=== PATIENT | female | born 1950 | race Caucasian/White ===

== ENCOUNTER 2020-04-15 01:20 | Observation (INO) ==
[2020-04-15] MEDS ORDERED: LORazepam 2 MG/1 ML VIAL ONE (01:42)
[2020-04-15] MEDS ORDERED: levETIRAcetam 500 MG/5 ML VIAL IV ONE (01:43)
[2020-04-15] MEDS ORDERED: SODIUM CHLORIDE 0.9% 1,000 ML IV STA ×2 (01:46→03:17)
[2020-04-15] MEDS ORDERED: LORazepam 2 MG/1 ML VIAL IV STA (01:56)
[2020-04-15 02:26] LABS: Basophils # 0.1 10*3/uL (0.0-0.2); Basophils % 0.7 % (0.0-0.8); Eosinophils # 0.2 10*3/uL (0.0-0.87); Eosinophils % 1.6 % (0.00-10.9); Hematocrit 41.1 VOL% (35.7-47.0); Hemoglobin 13.7 GM/DL (12.0-16.0); Immature Granulocytes % 0.4 %; Immature Granulocytes Absolute 0.04 #; Lymphocytes # 2.9 10*3/uL (1.4-4.0); Lymphocytes % 29.4 % (21.3-54.2); Mean Corpuscular HGB Conc 33.3 GM/DL (32-36); Mean Corpuscular Volume 89.5 FL (87-102); Monocytes % 10.2 % (1.7-12.7); Neutrophils % 57.7 % (38.7-73.9); Platelet Count 294 T/CUMM (130-400); Red Blood Count 4.59 MC/CUMM (3.8-5.5); Red Cell Distribution Width 12.7 % (9.3-17.3); White Blood Count 9.9 T/CUMM (4-12)
[2020-04-15 02:46] LABS: INR 0.9; PT Patient Result 9.9 SECS (9.8-11.9)
[2020-04-15 02:47] LABS: Alanine Aminotransferase 14 U/L (13-56); Albumin 3.1 G/DL (3.4-5.0); Alkaline Phosphatase 118 U/L (45-117); Apearance,Urine Slightly Hazy (Clear); Aspartate Amino Transferase 11 U/L (0-37); Bilirubin,Total < 0.39 MG/DL (0.2-1.0); Bilirubin,Urine Negative (Negative); Blood Urea Nitrogen 27 MG/DL (7-18); Blood, Urine Negative (Negative); Calcium 10.1 MG/DL (8.5-10.1); Estimated Glom Filtration Rate 38 ML/MIN; Glucose 197 MG/DL (74-106); Glucose,Urine (UA) >=500 mg/dL (Negative); Hyaline Casts,Urine 1 /LPF (0-3); Ketones,Urine Negative (Negative); Mucus,Urine Occasional /LPF (Occasional); Nitrite,Urine Negative (Negative); Osmolality,Calculated 284.7 MOS/KG (273-304); Protein,Urine 100 MG/DL; RBC,Urine 1 /HPF (0-4); Squamous Epithelial Cell,Urine Occasional /HPF (0-10); Total Protein 6.8 G/DL (6.4-8.3); Troponin I < 0.015 NG/ML (0.00-0.045); Urine Color Yellow (Yellow); Urine Specific Gravity 1.022 (1.001-1.035); WBC,Urine 4 /HPF (0-6)
[2020-04-15 02:55] LABS: Barbiturates Screen,Urine Negative (Negative); Benzodiazepines Screen,Urine Negative (Negative); Cannabinoid Screen,Urine Negative (Negative); Opiate Screen,Urine Negative (Negative); Phencyclidine Screen,Urine Negative (Negative)
[2020-04-15] MEDS ORDERED: MAGNESIUM SULF RIDER 2 GM in PREMIX 1 EACH IV STA (02:57)
[2020-04-15] MEDS ORDERED: VANCOMYCIN INJ 1,000 MG in SODIUM CHLORIDE 0.9% 250 ML IV STA (03:00)
[2020-04-15] MEDS ORDERED: DEXTROSE 50% 25 GM/50 ML VIAL IV PRN ×2 (05:03)
[2020-04-15] MEDS ORDERED: GLUCAGON 1 MG VIAL IM PRN ×2 (05:03)
[2020-04-15] MEDS ORDERED: ACETAMINOPHEN 325 MG TABLET PO PRN (05:03)
[2020-04-15] MEDS ORDERED: ONDANSETRON 4 MG/2 ML VIAL IV PRN (05:03)
[2020-04-15] MEDS ORDERED: SODIUM CHLORIDE 0.9% 1,000 ML IV SCH (05:30)
[2020-04-15] MEDS: LORazepam 2 MG/1 ML VIAL IV PRN ×2 (06:05→16:09)
[2020-04-15] MEDS: INSULIN REGULAR 100 UNIT/ML SUBCUT SCH ×4 (09:29→20:37)
[2020-04-15] MEDS: PANTOPRAZOLE 40 MG TABLET PO SCH (09:30)
[2020-04-15] MEDS: ENOXAPARIN 40 MG/0.4 ML SYRINGE SUBCUT SCH (09:30)
[2020-04-15 12:11] LABS: Folate 14.8 NG/ML (5.4-24.0); Vitamin B12 202 PG/ML (211-911)
[2020-04-15] MEDS ORDERED: LORazepam 2 MG/1 ML VIAL IM PRN (18:22)
[2020-04-16] MEDS: HALOPERIDOL 5 MG/ML AMP IV PRN ×3 (03:08→13:37)
[2020-04-16 06:02] LABS: Basophils # 0.1 10*3/uL (0.0-0.2); Eosinophils # 0.1 10*3/uL (0.0-0.87); Eosinophils % 2.1 % (0.00-10.9); Hematocrit 38.4 VOL% (35.7-47.0); Hemoglobin 12.9 GM/DL (12.0-16.0); Immature Granulocytes % 0.3 %; Immature Granulocytes Absolute 0.02 #; Lymphocytes % 33.8 % (21.3-54.2); Mean Corpuscular HGB Conc 33.6 GM/DL (32-36); Mean Corpuscular Volume 88.3 FL (87-102); Mean Platelet Volume 9.8 FL (9.6-12.0); Neutrophils % 52.8 % (38.7-73.9); Platelet Count 246 T/CUMM (130-400); Red Blood Count 4.35 MC/CUMM (3.8-5.5); Red Cell Distribution Width 12.7 % (9.3-17.3); White Blood Count 5.8 T/CUMM (4-12)
[2020-04-16 06:39] LABS: Albumin 2.9 G/DL (3.4-5.0); Bilirubin,Total 1.6 MG/DL (0.2-1.0); Calcium 9.7 MG/DL (8.5-10.1); Osmolality,Calculated 283.3 MOS/KG (273-304); Total Protein 6.2 G/DL (6.4-8.3)
[2020-04-16] MEDS: INSULIN REGULAR 100 UNIT/ML SUBCUT SCH ×4 (08:14→21:15)
[2020-04-16] MEDS: PANTOPRAZOLE 40 MG TABLET PO SCH (08:14)
[2020-04-16] MEDS: ENOXAPARIN 40 MG/0.4 ML SYRINGE SUBCUT SCH (08:14)
[2020-04-16] MEDS ORDERED: POTASSIUM CHLORIDE 20 MEQ TABLET PO ONE (10:49)
[2020-04-16] MEDS: QUEtiapine 25 MG TABLET PO SCH ×2 (16:27→21:16)
[2020-04-16] MEDS ORDERED: QUEtiapine 25 MG TABLET PO SCH (21:00)
[2020-04-16] MEDS ORDERED: INSULIN GLARGINE 100 UNIT/ML SUBCUT SCH (21:00)
[2020-04-16] MEDS: carvediloL 6.25 MG TABLET PO SCH (21:16)
[2020-04-17] MEDS: INSULIN REGULAR 100 UNIT/ML SUBCUT SCH ×3 (07:31→17:09)
[2020-04-17] MEDS: ENOXAPARIN 40 MG/0.4 ML SYRINGE SUBCUT SCH (08:34)
[2020-04-17] MEDS: HALOPERIDOL 5 MG/ML AMP IV PRN (08:35)
[2020-04-17] MEDS: PANTOPRAZOLE 40 MG TABLET PO SCH (08:36)
[2020-04-17] MEDS: carvediloL 6.25 MG TABLET PO SCH (08:36)
[2020-04-17 12:10] VITALS: BP 142/82
[2020-04-17] MEDS ORDERED: metFORMIN 500 MG TABLET PO SCH (17:00)
== END 2020-04-17 19:15 | disposition home or self-care (01) ==
LOC: SUATTDRO → N.ED 01:20 → N.EDINP 01:20 → N.4E 07:29
PROVIDERS: ADMIT Internal Medicine; ATTEND Internal Medicine

== ENCOUNTER 2021-08-15 19:22 | Inpatient (IN) ==
[2021-08-15 20:08] LABS: Basophils # 0.1 10*3/uL (0.0-0.2); Basophils % 0.5 % (0.0-0.8); Eosinophils # 0.1 10*3/uL (0.0-0.87); Eosinophils % 1.3 % (0.00-10.9); Hematocrit 38.1 VOL% (35.7-47.0); Hemoglobin 12.4 GM/DL (12.0-16.0); Immature Granulocytes % 0.5 %; Immature Granulocytes Absolute 0.05 #; Lymphocytes # 1.6 10*3/uL (1.4-4.0); Mean Corpuscular HGB Conc 32.5 GM/DL (32-36); Mean Corpuscular Volume 87.4 FL (87-102); Mean Platelet Volume 10.2 FL (9.6-12.0); Monocytes % 8.1 % (1.7-12.7); Neutrophils % 73.6 % (38.7-73.9); Platelet Count 301 T/CUMM (130-400); Red Blood Count 4.36 MC/CUMM (3.8-5.5); Red Cell Distribution Width 13.3 % (9.3-17.3); White Blood Count 9.7 T/CUMM (4-12)
[2021-08-15 20:22] LABS: Albumin 3.5 G/DL (3.4-5.0); Bilirubin,Total 0.5 MG/DL (0.20-1.00); Calcium 9.8 MG/DL (8.5-10.1); Osmolality,Calculated 296.1 MOS/KG (273-304); Total Protein 7.5 G/DL (6.4-8.2)
[2021-08-15 20:29] LABS: Potassium 2.4 MMOL/L (3.5-5.1)
[2021-08-15] MEDS ORDERED: POTASSIUM CHLORIDE RIDER 20 MEQ/100 ML PREMIX IV STA (21:17)
[2021-08-15] MEDS ORDERED: SODIUM CHLORIDE 0.9% 500 ML IV STA (21:18)
[2021-08-15] MEDS: POTASSIUM CHLORIDE RIDER 10 MEQ/100 ML PREMIX IV SCH ×2 (21:53→23:50)
[2021-08-15] MEDS ORDERED: SODIUM CHLORIDE 0.9% 1,000 ML IV STA (23:38)
[2021-08-16 00:31] LABS: Bacteria,Urine Occasional /HPF (Few); Bilirubin,Urine Negative (Negative); Blood, Urine Negative (Negative); Glucose,Urine (UA) >=500 mg/dL (Negative); Ketones,Urine Negative (Negative); Mucus,Urine Occasional /LPF (Occasional); Nitrite,Urine Negative (Negative); Protein,Urine Negative; RBC,Urine 1 /HPF (0-4); Squamous Epithelial Cell,Urine Occasional /HPF (0-10); Urine Appearance CLEAR (Clear); Urine Color Yellow (Yellow); Urine Specific Gravity 1.013 (1.001-1.035); Urine Urobilinogen < 2.0 EU/DL (<2.0)
[2021-08-16] MEDS ORDERED: cefTRIAXone 1,000 MG in SODIUM CHLORIDE 0.9% 100 ML IV STA (00:50)
[2021-08-16] MEDS ORDERED: diphenhydrAMINE CAP 25 MG CAPSULE PO PRN (01:27)
[2021-08-16] MEDS ORDERED: NICOTINE 21 MG/24 HR PATCH TRANSDERM PRN (01:27)
[2021-08-16] MEDS ORDERED: DOCUSATE SODIUM 100 MG CAPSULE PO PRN (01:27)
[2021-08-16] MEDS ORDERED: DEXTROSE 50% 25 GM/50 ML VIAL IV PRN (01:27)
[2021-08-16] MEDS ORDERED: guaiFENesin/DM ER 600-30 MG TABLET PO PRN (01:27)
[2021-08-16] MEDS ORDERED: GLUCAGON 1 MG VIAL IM PRN ×2 (01:27)
[2021-08-16] MEDS ORDERED: DEXTROSE 50% 25 GM/50 ML SYRINGE IV PRN (01:27)
[2021-08-16] MEDS ORDERED: hydrALAZINE 20 MG/1 ML VIAL IV PRN (01:27)
[2021-08-16] MEDS ORDERED: ONDANSETRON 4 MG/2 ML VIAL IV PRN (01:27)
[2021-08-16] MEDS ORDERED: LEVOFLOXACIN INJ 750 MG/150 ML PREMIX IV SCH (02:00)
[2021-08-16] MEDS: POTASSIUM CHLORIDE 20 MEQ TABLET PO SCH ×3 (02:54→17:11)
[2021-08-16] MEDS: SODIUM CHLORIDE 0.9% 1,000 ML IV SCH (03:45)
[2021-08-16] MEDS ORDERED: INSULIN LISPRO 100 UNIT/ML SUBCUT STA (04:16)
[2021-08-16 06:51] LABS: Basophils % 0.3 % (0.0-0.8); Eosinophils # 0.2 10*3/uL (0.0-0.87); Eosinophils % 1.8 % (0.00-10.9); Hemoglobin 12.1 GM/DL (12.0-16.0); Immature Granulocytes % 0.5 %; Immature Granulocytes Absolute 0.05 #; Lymphocytes # 1.6 10*3/uL (1.4-4.0); Mean Corpuscular HGB Conc 32.7 GM/DL (32-36); Mean Corpuscular Volume 87.5 FL (87-102); Mean Platelet Volume 10.2 FL (9.6-12.0); Monocytes % 8.2 % (1.7-12.7); Neutrophils % 72.2 % (38.7-73.9); Platelet Count 273 T/CUMM (130-400); Red Blood Count 4.23 MC/CUMM (3.8-5.5); Red Cell Distribution Width 13.2 % (9.3-17.3); White Blood Count 9.6 T/CUMM (4-12)
[2021-08-16 07:21] LABS: Albumin 3.4 G/DL (3.4-5.0); Bilirubin,Total 0.5 MG/DL (0.20-1.00); Calcium 9.9 MG/DL (8.5-10.1); Osmolality,Calculated 291.5 MOS/KG (273-304); Potassium 2.7 MMOL/L (3.5-5.1); Total Protein 7.3 G/DL (6.4-8.2)
[2021-08-16] MEDS: INSULIN LISPRO 100 UNIT/ML SUBCUT SCH ×4 (07:56→22:15)
[2021-08-16] MEDS: HEPARIN 5,000 UNIT/1 ML VIAL SUBCUT SCH ×2 (10:38→20:35)
[2021-08-16] MEDS: PANTOPRAZOLE 40 MG TABLET PO SCH (10:40)
[2021-08-16] MEDS: POTASSIUM CHLORIDE RIDER 10 MEQ/100 ML PREMIX IV PRN ×2 (12:19→14:47)
[2021-08-16] MEDS: POTASSIUM CHLORIDE INJ 10 MEQ in SODIUM CHLORIDE 0.9% 100 ML IV SCH (12:25)
[2021-08-16] MEDS: ALPRAZolam 0.5 MG TABLET PO PRN ×2 (15:55→22:09)
[2021-08-16] MEDS: carvediloL 6.25 MG TABLET PO SCH (17:11)
[2021-08-16] MEDS: ZALEPLON 5 MG CAPSULE PO PRN (20:35)
[2021-08-16] MEDS: ACETAMINOPHEN 325 MG TABLET PO PRN (22:11)
[2021-08-17] MEDS: POTASSIUM CHLORIDE 20 MEQ TABLET PO SCH ×3 (05:32→17:28)
[2021-08-17 06:21] LABS: Basophils # 0.1 10*3/uL (0.0-0.2); Basophils % 0.5 % (0.0-0.8); Eosinophils # 0.2 10*3/uL (0.0-0.87); Eosinophils % 1.9 % (0.00-10.9); Hematocrit 38.1 VOL% (35.7-47.0); Hemoglobin 12.3 GM/DL (12.0-16.0); Immature Granulocytes % 0.5 %; Immature Granulocytes Absolute 0.05 #; Lymphocytes # 1.8 10*3/uL (1.4-4.0); Lymphocytes % 19.7 % (21.3-54.2); Mean Corpuscular HGB Conc 32.3 GM/DL (32-36); Mean Corpuscular Volume 88.4 FL (87-102); Mean Platelet Volume 10.2 FL (9.6-12.0); Neutrophils % 67.4 % (38.7-73.9); Platelet Count 257 T/CUMM (130-400); Red Blood Count 4.31 MC/CUMM (3.8-5.5); Red Cell Distribution Width 13.1 % (9.3-17.3); White Blood Count 9.3 T/CUMM (4-12)
[2021-08-17 06:51] LABS: Calcium 10.2 MG/DL (8.5-10.1); Osmolality,Calculated 283.7 MOS/KG (273-304); Potassium 3.4 MMOL/L (3.5-5.1)
[2021-08-17 07:16] LABS: Eosinophils 1 % (0-10); Hypochromia Slight; Lymphocytes 21 % (20-55); Microcytosis Slight; Platelet Estimate Adequate; Segmented Neutrophils 71 % (50-85); Total Cells Counted 100
[2021-08-17] MEDS ORDERED: FUROSEMIDE 40 MG/4 ML VIAL IV ONE (08:12)
[2021-08-17] MEDS: carvediloL 6.25 MG TABLET PO SCH ×2 (09:42→16:00)
[2021-08-17] MEDS: PANTOPRAZOLE 40 MG TABLET PO SCH (09:42)
[2021-08-17] MEDS: INSULIN LISPRO 100 UNIT/ML SUBCUT SCH ×4 (10:15→22:50)
[2021-08-17] MEDS: SODIUM CHLORIDE 0.9% 1,000 ML IV SCH ×2 (10:15→18:51)
[2021-08-17] MEDS ORDERED: FUROSEMIDE 40 MG TABLET PO ONE (11:06)
[2021-08-17] MEDS: ALPRAZolam 0.5 MG TABLET PO PRN (11:48)
[2021-08-17] MEDS: HEPARIN 5,000 UNIT/1 ML VIAL SUBCUT SCH ×2 (11:48→21:06)
[2021-08-17] MEDS ORDERED: hydrALAZINE 10 MG TABLET PO PRN (12:56)
[2021-08-17] MEDS ORDERED: HALOPERIDOL 1 MG TABLET PO ONE (15:04)
[2021-08-17] MEDS: LEVOFLOXACIN 750 MG TABLET PO SCH (16:00)
[2021-08-17] MEDS: ZALEPLON 5 MG CAPSULE PO PRN (21:06)
[2021-08-18] MEDS: ACETAMINOPHEN 325 MG TABLET PO PRN ×3 (02:43→19:36)
[2021-08-18] MEDS: POTASSIUM CHLORIDE 20 MEQ TABLET PO SCH ×3 (02:51→17:30)
[2021-08-18] MEDS: SODIUM CHLORIDE 0.9% 1,000 ML IV SCH ×2 (05:33→15:05)
[2021-08-18 06:37] LABS: Basophils # 0.1 10*3/uL (0.0-0.2); Basophils % 0.6 % (0.0-0.8); Eosinophils # 0.2 10*3/uL (0.0-0.87); Hematocrit 39.4 VOL% (35.7-47.0); Hemoglobin 13.1 GM/DL (12.0-16.0); Immature Granulocytes % 0.5 %; Immature Granulocytes Absolute 0.04 #; Lymphocytes # 1.9 10*3/uL (1.4-4.0); Lymphocytes % 23.1 % (21.3-54.2); Mean Corpuscular HGB Conc 33.2 GM/DL (32-36); Mean Corpuscular Volume 87.8 FL (87-102); Monocytes % 9.7 % (1.7-12.7); Neutrophils % 64.1 % (38.7-73.9); Platelet Count 267 T/CUMM (130-400); Red Blood Count 4.49 MC/CUMM (3.8-5.5); Red Cell Distribution Width 13.2 % (9.3-17.3); White Blood Count 8.2 T/CUMM (4-12)
[2021-08-18 06:50] LABS: Calcium 10.3 MG/DL (8.5-10.1); Osmolality,Calculated 283.1 MOS/KG (273-304); Potassium 4.4 MMOL/L (3.5-5.1)
[2021-08-18 08:02] LABS: High Sensitive Troponin I* 8.5 ng/L (0-54)
[2021-08-18] MEDS: carvediloL 6.25 MG TABLET PO SCH ×2 (08:13→16:49)
[2021-08-18] MEDS: INSULIN LISPRO 100 UNIT/ML SUBCUT SCH ×4 (08:13→21:43)
[2021-08-18] MEDS: PANTOPRAZOLE 40 MG TABLET PO SCH (08:13)
[2021-08-18] MEDS: HEPARIN 5,000 UNIT/1 ML VIAL SUBCUT SCH ×2 (08:14→21:42)
[2021-08-18] MEDS ORDERED: MAGNESIUM OXIDE 400 MG TABLET PO ONE (11:00)
[2021-08-18 11:04] LABS: High Sensitive Troponin I* 7.8 ng/L (0-54)
[2021-08-19 05:50] LABS: Basophils # 0.1 10*3/uL (0.0-0.2); Basophils % 0.7 % (0.0-0.8); Eosinophils # 0.2 10*3/uL (0.0-0.87); Eosinophils % 2.7 % (0.00-10.9); Immature Granulocytes % 0.3 %; Immature Granulocytes Absolute 0.02 #; Lymphocytes # 2.3 10*3/uL (1.4-4.0); Lymphocytes % 32.4 % (21.3-54.2); Mean Corpuscular HGB Conc 31.6 GM/DL (32-36); Mean Platelet Volume 10.2 FL (9.6-12.0); Monocytes % 8.8 % (1.7-12.7); Neutrophils % 55.1 % (38.7-73.9); Platelet Count 265 T/CUMM (130-400); Red Blood Count 4.27 MC/CUMM (3.8-5.5); Red Cell Distribution Width 13.3 % (9.3-17.3)
[2021-08-19 06:10] LABS: Calcium 10.1 MG/DL (8.5-10.1); Osmolality,Calculated 287.8 MOS/KG (273-304); Potassium 4.6 MMOL/L (3.5-5.1)
[2021-08-19] MEDS: PANTOPRAZOLE 40 MG TABLET PO SCH (08:53)
[2021-08-19] MEDS: carvediloL 6.25 MG TABLET PO SCH ×3 (08:54→17:11)
[2021-08-19] MEDS: HEPARIN 5,000 UNIT/1 ML VIAL SUBCUT SCH ×2 (08:54→20:50)
[2021-08-19] MEDS: LEVOFLOXACIN 750 MG TABLET PO SCH (08:54)
[2021-08-19] MEDS: INSULIN LISPRO 100 UNIT/ML SUBCUT SCH ×5 (08:54→20:51)
[2021-08-19] MEDS: ALPRAZolam 0.5 MG TABLET PO PRN ×2 (08:59→19:40)
[2021-08-19] MEDS: GABAPENTIN 300 MG CAPSULE PO SCH (22:53)
[2021-08-20] MEDS: ZALEPLON 5 MG CAPSULE PO PRN ×2 (01:15→21:47)
[2021-08-20 05:30] LABS: Basophils % 0.5 % (0.0-0.8); Eosinophils # 0.2 10*3/uL (0.0-0.87); Eosinophils % 2.3 % (0.00-10.9); Hematocrit 37.3 VOL% (35.7-47.0); Immature Granulocytes % 0.3 %; Immature Granulocytes Absolute 0.02 #; Lymphocytes # 2.7 10*3/uL (1.4-4.0); Lymphocytes % 36.6 % (21.3-54.2); Mean Corpuscular HGB Conc 32.2 GM/DL (32-36); Mean Corpuscular Volume 89.9 FL (87-102); Mean Platelet Volume 10.1 FL (9.6-12.0); Monocytes % 7.9 % (1.7-12.7); Neutrophils % 52.4 % (38.7-73.9); Platelet Count 257 T/CUMM (130-400); Red Blood Count 4.15 MC/CUMM (3.8-5.5); Red Cell Distribution Width 13.3 % (9.3-17.3); White Blood Count 7.4 T/CUMM (4-12)
[2021-08-20 05:46] LABS: Osmolality,Calculated 291.4 MOS/KG (273-304); Potassium 4.3 MMOL/L (3.5-5.1)
[2021-08-20 05:55] LABS: Anisocytosis 1+; Macrocytosis Slight; Platelet Estimate Normal
[2021-08-20] MEDS: ALPRAZolam 0.5 MG TABLET PO PRN ×2 (09:08→21:47)
[2021-08-20] MEDS: HEPARIN 5,000 UNIT/1 ML VIAL SUBCUT SCH ×2 (09:09→21:47)
[2021-08-20] MEDS: metFORMIN 500 MG TABLET PO SCH ×2 (09:09→17:42)
[2021-08-20] MEDS: carvediloL 6.25 MG TABLET PO SCH ×2 (09:09→17:42)
[2021-08-20] MEDS: hydroCHLOROthiazide 12.5 MG CAPSULE PO SCH (09:09)
[2021-08-20] MEDS: GABAPENTIN 300 MG CAPSULE PO SCH ×2 (09:09→21:47)
[2021-08-20] MEDS: PANTOPRAZOLE 40 MG TABLET PO SCH (09:09)
[2021-08-20] MEDS: lisinopriL 10 MG TABLET PO SCH (09:09)
[2021-08-20] MEDS: SODIUM CHLORIDE 0.9% 1,000 ML IV SCH ×3 (09:15→18:12)
[2021-08-20] MEDS: INSULIN LISPRO 100 UNIT/ML SUBCUT SCH ×4 (09:16→21:47)
[2021-08-20] MEDS ORDERED: ONDANSETRON 4 MG TABLET PO PRN (21:33)
[2021-08-21] MEDS: INSULIN LISPRO 100 UNIT/ML SUBCUT SCH ×3 (08:54→19:14)
[2021-08-21] MEDS: LEVOFLOXACIN 750 MG TABLET PO SCH (08:55)
[2021-08-21] MEDS: carvediloL 6.25 MG TABLET PO SCH ×2 (08:55→19:14)
[2021-08-21] MEDS: HEPARIN 5,000 UNIT/1 ML VIAL SUBCUT SCH (08:55)
[2021-08-21] MEDS: hydroCHLOROthiazide 12.5 MG CAPSULE PO SCH (08:55)
[2021-08-21] MEDS: GABAPENTIN 300 MG CAPSULE PO SCH (08:55)
[2021-08-21] MEDS: PANTOPRAZOLE 40 MG TABLET PO SCH (08:55)
[2021-08-21] MEDS: lisinopriL 10 MG TABLET PO SCH (08:55)
[2021-08-21] MEDS: metFORMIN 500 MG TABLET PO SCH ×2 (08:55→19:14)
[2021-08-21] MEDS: SODIUM CHLORIDE 0.9% 1,000 ML IV SCH (11:08)
[2021-08-21] MEDS: ALPRAZolam 0.5 MG TABLET PO PRN ×2 (12:33→18:56)
[2021-08-21 14:50] VITALS: BP 102/49
== END 2021-08-21 19:24 | disposition home health service (06) | DRG 689 ==
LOC: N.ED 19:22 → SUATTDRO 08-16 01:27 → N.EDINP 08-16 01:27 → N.5E 08-16 05:06
PROVIDERS: ADMIT Emergency Medicine; ATTEND Internal Medicine

== ENCOUNTER 2022-03-15 03:35 | Inpatient (IN) ==
[2022-03-15] MEDS ORDERED: SODIUM CHLORIDE 0.9% 1,000 ML IV STA ×2 (03:39→04:55)
[2022-03-15 03:53] LABS: Basophils % 0.1 % (0.0-0.8); Eosinophils # 0.1 10*3/uL (0.0-0.87); Eosinophils % 0.8 % (0.00-10.9); Hematocrit 21.7 VOL% (35.7-47.0); Hemoglobin 6.6 GM/DL (12.0-16.0); Immature Granulocytes % 2.6 %; Immature Granulocytes Absolute 0.27 #; Lymphocytes # 1.1 10*3/uL (1.4-4.0); Lymphocytes % 10.4 % (21.3-54.2); Mean Corpuscular HGB Conc 30.4 GM/DL (32-36); Mean Corpuscular Volume 89.3 FL (87-102); Mean Platelet Volume 9.9 FL (9.6-12.0); Monocytes # 0.8 10*3/uL (0.11-0.8); Monocytes % 7.6 % (1.7-12.7); Neutrophils % 78.5 % (38.7-73.9); Platelet Count 441 T/CUMM (130-400); Red Blood Count 2.43 MC/CUMM (3.8-5.5); Red Cell Distribution Width 15.8 % (9.3-17.3); White Blood Count 10.5 T/CUMM (4-12)
[2022-03-15] MEDS ORDERED: DEXTROSE 50% 25 GM/50 ML VIAL IV STA (04:01)
[2022-03-15 04:02] LABS: PT Patient Result 10.8 SECS (10.5-12.0)
[2022-03-15] MEDS ORDERED: DEXTROSE 50% 25 GM/50 ML SYRINGE IV ONE (04:04)
[2022-03-15 04:05] LABS: ABG Base Excess -6.3 MMOL/L (-2.5-2.5); ABG HCO3 19.1 MMOL/L (20-26); ABG PCO2 29.5 MM HG (35-48); ABG PO2 67.9 MM HG (80-95); ABG TCO2 16.8 MMOL/L (23-27)
[2022-03-15] MEDS ORDERED: LEVOFLOXACIN INJ 500 MG/100 ML PREMIX IV ONE (04:09)
[2022-03-15] MEDS ORDERED: VANCOMYCIN INJ 1,000 MG in SODIUM CHLORIDE 0.9% 250 ML IV STA (04:09)
[2022-03-15 04:12] LABS: Bacteria,Urine Many /HPF (Few); Hyaline Casts,Urine 1 /LPF (0-3); Mucus,Urine Occasional /LPF (Occasional); Squamous Epithelial Cell,Urine Occasional /HPF (0-10)
[2022-03-15 04:13] LABS: Bilirubin,Urine Negative (Negative); Blood, Urine Negative (Negative); Glucose,Urine (UA) Negative (Negative); Ketones,Urine Negative (Negative); Nitrite,Urine Negative (Negative); Protein,Urine Trace mg/dL (Negative); Urine Appearance Clear (Clear); Urine Color Yellow (Yellow); Urine Specific Gravity 1.025 (1.001-1.035); Urine Urobilinogen 0.2 eU/dL (<2.0)
[2022-03-15 04:33] LABS: Alanine Aminotransferase 18 U/L (13-56); Albumin 1.7 G/DL (3.4-5.0); Alkaline Phosphatase 253 U/L (45-117); Aspartate Amino Transferase 23 U/L (0-37); Bilirubin,Total < 0.39 MG/DL (0.20-1.00); Blood Urea Nitrogen 56 MG/DL (7-18); Calcium 8.9 MG/DL (8.5-10.1); Carbon Dioxide 19 MMOL/L (21-32); Chloride 111 MMOL/L (98-107); Glucose 70 MG/DL (74-106); Osmolality,Calculated 288.7 MOS/KG (273-304); Potassium 5.1 MMOL/L (3.5-5.1); Sodium 138 MMOL/L (136-145); Total Protein 5.6 G/DL (6.4-8.2)
[2022-03-15 04:45] LABS: Lactic Acid 2.3 MMOL/L (0.4-2.0)
[2022-03-15] MEDS ORDERED: SODIUM CHLORIDE 0.9% 1,000 ML IV SCH (05:00)
[2022-03-15] MEDS ORDERED: ENOXAPARIN 30 MG/0.3 ML SYRINGE SUBCUT SCH (05:00)
[2022-03-15] MEDS ORDERED: SODIUM CHLORIDE 0.9% 1,000 ML IV PRN (05:08)
[2022-03-15] MEDS: DEXAMETHASONE 4 MG/1 ML VIAL IV SCH (09:28)
[2022-03-15] MEDS: ASCORBIC ACID 500 MG TABLET PO SCH ×2 (09:29→20:14)
[2022-03-15] MEDS: ZINC GLUCONATE 50 MG TABLET PO SCH (09:29)
[2022-03-15] MEDS: CHOLECALCIFEROL 1,000 UNIT TABLET PO SCH (09:29)
[2022-03-15] MEDS: FAMOTIDINE 20 MG TABLET PO SCH ×2 (09:29→20:15)
[2022-03-15] MEDS: CETIRIZINE 10 MG TABLET PO SCH (09:30)
[2022-03-15 10:04] LABS: % Iron Saturation 7.8 % (18-50)
[2022-03-15] MEDS ORDERED: AZITHROMYCIN INJ 500 MG in SODIUM CHLORIDE 0.9% 250 ML IV SCH (12:00)
[2022-03-15] MEDS ORDERED: FUROSEMIDE 40 MG/4 ML VIAL IV ONE (12:44)
[2022-03-15 15:13] LABS: Basophils % 0.2 % (0.0-0.8); Eosinophils % 0.2 % (0.00-10.9); Hemoglobin 9.4 GM/DL (12.0-16.0); Immature Granulocytes % 2.8 %; Immature Granulocytes Absolute 0.34 #; Lymphocytes # 0.8 10*3/uL (1.4-4.0); Lymphocytes % 6.8 % (21.3-54.2); Mean Corpuscular HGB Conc 31.3 GM/DL (32-36); Mean Corpuscular Volume 89.3 FL (87-102); Monocytes # 0.8 10*3/uL (0.11-0.8); Monocytes % 6.8 % (1.7-12.7); Neutrophils % 83.2 % (38.7-73.9); Platelet Count 480 T/CUMM (130-400); Red Blood Count 3.36 MC/CUMM (3.8-5.5); Red Cell Distribution Width 15.5 % (9.3-17.3); White Blood Count 12.1 T/CUMM (4-12)
[2022-03-15 15:39] LABS: Folate 8.19 NG/ML (5.38-24.0); Vitamin B12 > 2000 PG/ML (211-911)
[2022-03-15 15:51] LABS: Alanine Aminotransferase 19 U/L (13-56); Albumin 1.6 G/DL (3.4-5.0); Alkaline Phosphatase 240 U/L (45-117); Aspartate Amino Transferase 26 U/L (0-37); Bilirubin,Total < 0.39 MG/DL (0.20-1.00); Blood Urea Nitrogen 47 MG/DL (7-18); Calcium 8.1 MG/DL (8.5-10.1); Carbon Dioxide 16 MMOL/L (21-32); Chloride 114 MMOL/L (98-107); Glucose 146 MG/DL (74-106); Osmolality,Calculated 295.3 MOS/KG (273-304); Potassium 4.3 MMOL/L (3.5-5.1); Sodium 141 MMOL/L (136-145); Total Protein 6.1 G/DL (6.4-8.2)
[2022-03-15 16:24] LABS: Sedimentation Rate-Westergren 116 MM/HR (0-30)
[2022-03-15] MEDS: hydrOXYzine HCL 25 MG TABLET PO SCH ×2 (16:26→20:15)
[2022-03-15] MEDS: GABAPENTIN 300 MG CAPSULE PO SCH ×2 (16:26→20:14)
[2022-03-15] MEDS: carvediloL 6.25 MG TABLET PO SCH (16:49)
[2022-03-15] MEDS: busPIRone 5 MG TABLET PO SCH (20:14)
[2022-03-15] MEDS: MELATONIN 3 MG TABLET PO PRN (20:14)
[2022-03-15] MEDS: DOCUSATE SODIUM 100 MG CAPSULE PO SCH (20:15)
[2022-03-15] MEDS: MEMANTINE 10 MG TABLET PO SCH (20:15)
[2022-03-15] MEDS: DONEPEZIL 10 MG TABLET PO SCH (20:15)
[2022-03-16 08:18] LABS: Arterial Base Excess iSTAT -6 MMOL/L (-2.5-2.5); Arterial Bicarbonate iSTAT 18.2 MMOL/L (20-26); Arterial O2 Saturation iSTAT 93 % (95-100); Arterial PCO2 iSTAT 30 MM HG (35-48); Arterial PO2 iSTAT 68 MM HG (80-95); Arterial Total CO2 iSTAT 19 MMO/L (23-27)
[2022-03-16] MEDS ORDERED: AZITHROMYCIN INJ 500 MG in SODIUM CHLORIDE 0.9% 250 ML IV SCH (09:00)
[2022-03-16] MEDS ORDERED: FERROUS SULFATE 325 MG TABLET PO SCH (09:00)
[2022-03-16] MEDS ORDERED: ASCORBIC ACID 500 MG TABLET PO SCH (09:00)
[2022-03-16] MEDS: carvediloL 6.25 MG TABLET PO SCH ×2 (11:18→16:58)
[2022-03-16] MEDS: hydrOXYzine HCL 25 MG TABLET PO SCH ×3 (11:18→21:14)
[2022-03-16] MEDS: busPIRone 5 MG TABLET PO SCH ×2 (11:19→21:14)
[2022-03-16] MEDS: CALCIUM (CARBONATE)/VITAMIN D 600 MG-400 UNIT TABLET PO SCH (11:19)
[2022-03-16] MEDS: DEXAMETHASONE 4 MG/1 ML VIAL IV SCH (11:19)
[2022-03-16] MEDS: DOCUSATE SODIUM 100 MG CAPSULE PO SCH ×2 (11:19→21:15)
[2022-03-16] MEDS: FAMOTIDINE 20 MG TABLET PO SCH ×2 (11:21→21:14)
[2022-03-16] MEDS: MEMANTINE 10 MG TABLET PO SCH ×2 (11:21→21:15)
[2022-03-16] MEDS: ATORVASTATIN 40 MG TABLET PO SCH (11:21)
[2022-03-16] MEDS: cefTRIAXone 2,000 MG in SODIUM CHLORIDE 0.9% 100 ML IV SCH (11:21)
[2022-03-16] MEDS: GABAPENTIN 300 MG CAPSULE PO SCH ×3 (11:21→21:14)
[2022-03-16] MEDS: CETIRIZINE 10 MG TABLET PO SCH (11:22)
[2022-03-16] MEDS: SODIUM BICARBONATE 650 MG TABLET PO SCH ×3 (11:22→21:14)
[2022-03-16] MEDS: OXcarbazepine 300 MG TABLET PO SCH (11:22)
[2022-03-16] MEDS: ZINC GLUCONATE 50 MG TABLET PO SCH (11:22)
[2022-03-16] MEDS: CHOLECALCIFEROL 1,000 UNIT TABLET PO SCH (11:22)
[2022-03-16] MEDS: ASCORBIC ACID 500 MG TABLET PO SCH ×2 (11:22→21:15)
[2022-03-16] MEDS: FERRIC GLUCONATE COMPLEX 125 MG in SODIUM CHLORIDE 0.9% 100 ML IV SCH (15:00)
[2022-03-16] MEDS: DONEPEZIL 10 MG TABLET PO SCH (21:14)
[2022-03-16] MEDS: MELATONIN 3 MG TABLET PO PRN (21:14)
[2022-03-17 06:10] LABS: Alanine Aminotransferase 22 U/L (13-56); Albumin 1.6 G/DL (3.4-5.0); Alkaline Phosphatase 258 U/L (45-117); Aspartate Amino Transferase 51 U/L (0-37); Bilirubin,Total < 0.39 MG/DL (0.20-1.00); Blood Urea Nitrogen 29 MG/DL (7-18); Calcium 8.6 MG/DL (8.5-10.1); Carbon Dioxide 17 MMOL/L (21-32); Chloride 115 MMOL/L (98-107); Glucose 88 MG/DL (74-106); Osmolality,Calculated 283.4 MOS/KG (273-304); Potassium 3.9 MMOL/L (3.5-5.1); Sodium 140 MMOL/L (136-145); Total Protein 6.1 G/DL (6.4-8.2)
[2022-03-17] MEDS: OXcarbazepine 300 MG TABLET PO SCH (09:34)
[2022-03-17] MEDS: CALCIUM (CARBONATE)/VITAMIN D 600 MG-400 UNIT TABLET PO SCH (09:34)
[2022-03-17] MEDS: SODIUM BICARBONATE 650 MG TABLET PO SCH ×3 (09:34→21:46)
[2022-03-17] MEDS: ZINC GLUCONATE 50 MG TABLET PO SCH (09:34)
[2022-03-17] MEDS: ATORVASTATIN 40 MG TABLET PO SCH (09:34)
[2022-03-17] MEDS: ASCORBIC ACID 500 MG TABLET PO SCH ×2 (09:34→21:46)
[2022-03-17] MEDS: DOCUSATE SODIUM 100 MG CAPSULE PO SCH ×2 (09:34→21:46)
[2022-03-17] MEDS: hydrOXYzine HCL 25 MG TABLET PO SCH ×3 (09:34→21:46)
[2022-03-17] MEDS: CETIRIZINE 10 MG TABLET PO SCH (09:35)
[2022-03-17] MEDS: CHOLECALCIFEROL 1,000 UNIT TABLET PO SCH (09:35)
[2022-03-17] MEDS: MEMANTINE 10 MG TABLET PO SCH ×2 (09:35→21:46)
[2022-03-17] MEDS: FAMOTIDINE 20 MG TABLET PO SCH ×2 (09:35→21:46)
[2022-03-17] MEDS: GABAPENTIN 300 MG CAPSULE PO SCH ×3 (09:35→21:46)
[2022-03-17] MEDS: busPIRone 5 MG TABLET PO SCH ×2 (09:35→21:46)
[2022-03-17] MEDS: carvediloL 6.25 MG TABLET PO SCH ×2 (09:35→17:08)
[2022-03-17] MEDS: DEXAMETHASONE 4 MG/1 ML VIAL IV SCH (09:36)
[2022-03-17] MEDS: cefTRIAXone 2,000 MG in SODIUM CHLORIDE 0.9% 100 ML IV SCH (09:37)
[2022-03-17] MEDS: SILVER SULFADIAZINE 1% CREAM 25 GM TUBE TOP SCH (09:37)
[2022-03-17] MEDS: FERRIC GLUCONATE COMPLEX 125 MG in SODIUM CHLORIDE 0.9% 100 ML IV SCH (09:50)
[2022-03-17] MEDS: AZITHROMYCIN 250 MG TABLET PO SCH (09:50)
[2022-03-17] MEDS ORDERED: CLINDAMYCIN INJ 600 MG/50 ML PREMIX IV SCH (11:00)
[2022-03-17 16:23] LABS: Basophils % 0.2 % (0.0-0.8); Hematocrit 32.4 VOL% (35.7-47.0); Hemoglobin 10.2 GM/DL (12.0-16.0); Immature Granulocytes % 2.5 %; Immature Granulocytes Absolute 0.28 #; Lymphocytes # 0.6 10*3/uL (1.4-4.0); Lymphocytes % 5.2 % (21.3-54.2); Mean Corpuscular HGB Conc 31.5 GM/DL (32-36); Mean Corpuscular Volume 87.1 FL (87-102); Mean Platelet Volume 9.6 FL (9.6-12.0); Monocytes # 0.4 10*3/uL (0.11-0.8); Monocytes % 3.7 % (1.7-12.7); Neutrophils % 88.4 % (38.7-73.9); Platelet Count 394 T/CUMM (130-400); Red Blood Count 3.72 MC/CUMM (3.8-5.5); Red Cell Distribution Width 15.8 % (9.3-17.3); White Blood Count 11.1 T/CUMM (4-12)
[2022-03-17] MEDS: DONEPEZIL 10 MG TABLET PO SCH (21:46)
[2022-03-17] MEDS: CLINDAMYCIN INJ 900 MG/50 ML PREMIX IV SCH (21:47)
[2022-03-18] MEDS: CLINDAMYCIN INJ 900 MG/50 ML PREMIX IV SCH ×3 (04:03→20:43)
[2022-03-18 05:50] LABS: Basophils % 0.2 % (0.0-0.8); Eosinophils % 0.1 % (0.00-10.9); Hematocrit 34.7 VOL% (35.7-47.0); Hemoglobin 10.8 GM/DL (12.0-16.0); Immature Granulocytes % 2.3 %; Immature Granulocytes Absolute 0.23 #; Lymphocytes # 1.2 10*3/uL (1.4-4.0); Lymphocytes % 12.2 % (21.3-54.2); Mean Corpuscular HGB Conc 31.1 GM/DL (32-36); Mean Corpuscular Volume 88.5 FL (87-102); Mean Platelet Volume 10.1 FL (9.6-12.0); Monocytes # 0.5 10*3/uL (0.11-0.8); Monocytes % 5.3 % (1.7-12.7); Neutrophils % 79.9 % (38.7-73.9); Platelet Count 376 T/CUMM (130-400); Red Blood Count 3.92 MC/CUMM (3.8-5.5)
[2022-03-18 05:54] LABS: Osmolality,Calculated 288.1 MOS/KG (273-304); Potassium 3.8 MMOL/L (3.5-5.1)
[2022-03-18 09:14] LABS: Hemoglobin A1 (Alkaline) 97.9 % (96.5-98.5); Hemoglobin A2 (Alkaline) 2.1 % (1.5-3.5)
[2022-03-18] MEDS: CETIRIZINE 10 MG TABLET PO SCH (09:20)
[2022-03-18] MEDS: ZINC GLUCONATE 50 MG TABLET PO SCH (09:20)
[2022-03-18] MEDS: AZITHROMYCIN 250 MG TABLET PO SCH (09:20)
[2022-03-18] MEDS: ASCORBIC ACID 500 MG TABLET PO SCH ×2 (09:20→20:43)
[2022-03-18] MEDS: DOCUSATE SODIUM 100 MG CAPSULE PO SCH ×2 (09:20→21:43)
[2022-03-18] MEDS: hydrOXYzine HCL 25 MG TABLET PO SCH ×3 (09:21→20:42)
[2022-03-18] MEDS: ATORVASTATIN 40 MG TABLET PO SCH (09:21)
[2022-03-18] MEDS: carvediloL 6.25 MG TABLET PO SCH ×2 (09:21→17:14)
[2022-03-18] MEDS: CALCIUM (CARBONATE)/VITAMIN D 600 MG-400 UNIT TABLET PO SCH (09:21)
[2022-03-18] MEDS: FAMOTIDINE 20 MG TABLET PO SCH ×2 (09:21→20:43)
[2022-03-18] MEDS: SODIUM BICARBONATE 650 MG TABLET PO SCH ×3 (09:21→20:43)
[2022-03-18] MEDS: busPIRone 5 MG TABLET PO SCH ×2 (09:21→20:43)
[2022-03-18] MEDS: CHOLECALCIFEROL 1,000 UNIT TABLET PO SCH (09:21)
[2022-03-18] MEDS: OXcarbazepine 300 MG TABLET PO SCH (09:21)
[2022-03-18] MEDS: MEMANTINE 10 MG TABLET PO SCH ×2 (09:21→20:42)
[2022-03-18] MEDS: SILVER SULFADIAZINE 1% CREAM 25 GM TUBE TOP SCH (09:24)
[2022-03-18] MEDS: DEXAMETHASONE 4 MG/1 ML VIAL IV SCH (09:24)
[2022-03-18] MEDS: cefTRIAXone 2,000 MG in SODIUM CHLORIDE 0.9% 100 ML IV SCH (09:25)
[2022-03-18] MEDS: FERRIC GLUCONATE COMPLEX 125 MG in SODIUM CHLORIDE 0.9% 100 ML IV SCH (09:26)
[2022-03-18] MEDS: GABAPENTIN 300 MG CAPSULE PO SCH ×3 (09:28→20:43)
[2022-03-18] MEDS: ZINC OXIDE 16% PASTE 57 GM TUBE TOP SCH ×2 (15:47→20:43)
[2022-03-18] MEDS: MELATONIN 3 MG TABLET PO PRN (20:42)
[2022-03-18] MEDS: HEPARIN 5,000 UNIT/1 ML VIAL SUBCUT SCH (20:42)
[2022-03-18] MEDS: DONEPEZIL 10 MG TABLET PO SCH (20:42)
[2022-03-19] MEDS: CLINDAMYCIN INJ 900 MG/50 ML PREMIX IV SCH ×3 (04:20→21:43)
[2022-03-19] MEDS ORDERED: MAGNESIUM SULF RIDER 4 GM/100 ML PREMIX IV ONE (07:32)
[2022-03-19] MEDS: HEPARIN 5,000 UNIT/1 ML VIAL SUBCUT SCH ×2 (07:59→21:41)
[2022-03-19 08:18] LABS: Basophils % 0.4 % (0.0-0.8); Eosinophils % 0.1 % (0.00-10.9); Hematocrit 33.3 VOL% (35.7-47.0); Hemoglobin 10.7 GM/DL (12.0-16.0); Immature Granulocytes % 2.7 %; Immature Granulocytes Absolute 0.21 #; Lymphocytes # 1.1 10*3/uL (1.4-4.0); Lymphocytes % 13.9 % (21.3-54.2); Mean Corpuscular HGB Conc 32.1 GM/DL (32-36); Mean Corpuscular Volume 85.4 FL (87-102); Mean Platelet Volume 9.6 FL (9.6-12.0); Monocytes # 0.4 10*3/uL (0.11-0.8); Monocytes % 5.6 % (1.7-12.7); Neutrophils % 77.3 % (38.7-73.9); Platelet Count 332 T/CUMM (130-400); Red Cell Distribution Width 15.8 % (9.3-17.3); White Blood Count 7.7 T/CUMM (4-12)
[2022-03-19 08:39] LABS: Calcium 8.3 MG/DL (8.5-10.1); Osmolality,Calculated 285.1 MOS/KG (273-304); Potassium 2.9 MMOL/L (3.5-5.1)
[2022-03-19] MEDS: ZINC OXIDE 16% PASTE 57 GM TUBE TOP SCH ×2 (09:45→21:43)
[2022-03-19] MEDS ORDERED: ALBUMIN 25% 25 GM/100 ML VIAL IV ONE (11:00)
[2022-03-19] MEDS ORDERED: POTASSIUM CHLORIDE 20 MEQ TABLET PO ONE (11:00)
[2022-03-19] MEDS: ZINC GLUCONATE 50 MG TABLET PO SCH (11:07)
[2022-03-19] MEDS: OXcarbazepine 300 MG TABLET PO SCH (11:07)
[2022-03-19] MEDS: ASCORBIC ACID 500 MG TABLET PO SCH ×2 (11:07→21:42)
[2022-03-19] MEDS: hydrOXYzine HCL 25 MG TABLET PO SCH ×3 (11:08→21:42)
[2022-03-19] MEDS: ATORVASTATIN 40 MG TABLET PO SCH (11:08)
[2022-03-19] MEDS: CHOLECALCIFEROL 1,000 UNIT TABLET PO SCH (11:08)
[2022-03-19] MEDS: SODIUM BICARBONATE 650 MG TABLET PO SCH ×3 (11:08→21:41)
[2022-03-19] MEDS: FAMOTIDINE 20 MG TABLET PO SCH ×2 (11:08→21:57)
[2022-03-19] MEDS: busPIRone 5 MG TABLET PO SCH ×2 (11:08→21:42)
[2022-03-19] MEDS: CETIRIZINE 10 MG TABLET PO SCH (11:08)
[2022-03-19] MEDS: CALCIUM (CARBONATE)/VITAMIN D 600 MG-400 UNIT TABLET PO SCH (11:08)
[2022-03-19] MEDS: GABAPENTIN 300 MG CAPSULE PO SCH ×3 (11:08→21:42)
[2022-03-19] MEDS: carvediloL 6.25 MG TABLET PO SCH ×2 (11:08→16:55)
[2022-03-19] MEDS: MEMANTINE 10 MG TABLET PO SCH ×2 (11:08→21:42)
[2022-03-19] MEDS: DEXAMETHASONE 4 MG/1 ML VIAL IV SCH (11:09)
[2022-03-19] MEDS: DOCUSATE SODIUM 100 MG CAPSULE PO SCH ×2 (11:09→21:43)
[2022-03-19] MEDS ORDERED: DIAZEPAM 5 MG TABLET PO ONE (11:23)
[2022-03-19] MEDS ORDERED: SODIUM CHLORIDE 0.45% 1,000 ML IV SCH (11:30)
[2022-03-19] MEDS: cefTRIAXone 2,000 MG in SODIUM CHLORIDE 0.9% 100 ML IV SCH (11:45)
[2022-03-19] MEDS: FERRIC GLUCONATE COMPLEX 125 MG in SODIUM CHLORIDE 0.9% 100 ML IV SCH (12:50)
[2022-03-19] MEDS: SILVER SULFADIAZINE 1% CREAM 25 GM TUBE TOP SCH (15:15)
[2022-03-19] MEDS: SKIN HEALING OINT (AQUAPHOR) 50 GM TUBE TOP SCH (15:15)
[2022-03-19 17:10] LABS: Potassium 3.7 MMOL/L (3.5-5.1)
[2022-03-19] MEDS: DONEPEZIL 10 MG TABLET PO SCH (21:42)
[2022-03-20] MEDS: CLINDAMYCIN INJ 900 MG/50 ML PREMIX IV SCH ×3 (04:09→20:48)
[2022-03-20 06:08] LABS: Basophils % 0.3 % (0.0-0.8); Hematocrit 28.8 VOL% (35.7-47.0); Hemoglobin 9.2 GM/DL (12.0-16.0); Immature Granulocytes Absolute 0.26 #; Lymphocytes % 15.2 % (21.3-54.2); Mean Corpuscular HGB Conc 31.9 GM/DL (32-36); Mean Corpuscular Volume 85.2 FL (87-102); Mean Platelet Volume 9.8 FL (9.6-12.0); Monocytes # 0.3 10*3/uL (0.11-0.8); Monocytes % 4.3 % (1.7-12.7); Neutrophils % 76.2 % (38.7-73.9); Platelet Count 306 T/CUMM (130-400); Red Blood Count 3.38 MC/CUMM (3.8-5.5); Red Cell Distribution Width 15.7 % (9.3-17.3); White Blood Count 6.5 T/CUMM (4-12)
[2022-03-20 06:29] LABS: Calcium 7.9 MG/DL (8.5-10.1); Osmolality,Calculated 290.8 MOS/KG (273-304); Potassium 3.2 MMOL/L (3.5-5.1)
[2022-03-20 07:07] LABS: Band Neutrophils 10 % (0-10); Lymphocytes 19 % (20-55); Total Cells Counted 100
[2022-03-20 07:08] LABS: Anisocytosis Slight; Burr Cells 1+; Platelet Estimate Normal
[2022-03-20] MEDS ORDERED: POTASSIUM CHLORIDE 20 MEQ TABLET PO ONE (07:54)
[2022-03-20] MEDS: carvediloL 6.25 MG TABLET PO SCH ×2 (09:41→17:28)
[2022-03-20] MEDS: hydrOXYzine HCL 25 MG TABLET PO SCH ×3 (09:41→20:47)
[2022-03-20] MEDS: SKIN HEALING OINT (AQUAPHOR) 50 GM TUBE TOP SCH (09:42)
[2022-03-20] MEDS: ZINC OXIDE 16% PASTE 57 GM TUBE TOP SCH ×2 (09:42→20:55)
[2022-03-20] MEDS: SODIUM BICARBONATE 650 MG TABLET PO SCH ×3 (09:42→20:47)
[2022-03-20] MEDS: MEMANTINE 10 MG TABLET PO SCH ×2 (09:42→20:47)
[2022-03-20] MEDS: ASCORBIC ACID 500 MG TABLET PO SCH ×2 (09:42→20:47)
[2022-03-20] MEDS: CETIRIZINE 10 MG TABLET PO SCH (09:43)
[2022-03-20] MEDS: ATORVASTATIN 40 MG TABLET PO SCH (09:43)
[2022-03-20] MEDS: CHOLECALCIFEROL 1,000 UNIT TABLET PO SCH (09:43)
[2022-03-20] MEDS: DOCUSATE SODIUM 100 MG CAPSULE PO SCH ×2 (09:43→20:55)
[2022-03-20] MEDS: OXcarbazepine 300 MG TABLET PO SCH (09:43)
[2022-03-20] MEDS: FAMOTIDINE 20 MG TABLET PO SCH ×2 (09:43→20:47)
[2022-03-20] MEDS: GABAPENTIN 300 MG CAPSULE PO SCH ×3 (09:43→20:47)
[2022-03-20] MEDS: ZINC GLUCONATE 50 MG TABLET PO SCH (09:44)
[2022-03-20] MEDS: HEPARIN 5,000 UNIT/1 ML VIAL SUBCUT SCH ×2 (09:44→20:55)
[2022-03-20] MEDS: DEXAMETHASONE 4 MG/1 ML VIAL IV SCH (09:44)
[2022-03-20] MEDS: busPIRone 5 MG TABLET PO SCH ×2 (09:45→20:48)
[2022-03-20] MEDS: CALCIUM (CARBONATE)/VITAMIN D 600 MG-400 UNIT TABLET PO SCH (09:45)
[2022-03-20] MEDS: FERRIC GLUCONATE COMPLEX 125 MG in SODIUM CHLORIDE 0.9% 100 ML IV SCH (09:47)
[2022-03-20] MEDS: cefTRIAXone 2,000 MG in SODIUM CHLORIDE 0.9% 100 ML IV SCH (09:47)
[2022-03-20] MEDS: DONEPEZIL 10 MG TABLET PO SCH (20:47)
[2022-03-21] MEDS: CLINDAMYCIN INJ 900 MG/50 ML PREMIX IV SCH ×3 (04:40→20:10)
[2022-03-21] MEDS ORDERED: POTASSIUM CHLORIDE 20 MEQ TABLET PO ONE (08:34)
[2022-03-21] MEDS: cefTRIAXone 2,000 MG in SODIUM CHLORIDE 0.9% 100 ML IV SCH (09:00)
[2022-03-21] MEDS: HEPARIN 5,000 UNIT/1 ML VIAL SUBCUT SCH ×2 (09:02→20:10)
[2022-03-21] MEDS: MEMANTINE 10 MG TABLET PO SCH ×2 (09:02→20:10)
[2022-03-21] MEDS: DEXAMETHASONE 4 MG/1 ML VIAL IV SCH (09:02)
[2022-03-21] MEDS: hydrOXYzine HCL 25 MG TABLET PO SCH ×3 (09:03→20:10)
[2022-03-21] MEDS: ASCORBIC ACID 500 MG TABLET PO SCH ×2 (09:03→20:10)
[2022-03-21] MEDS: SODIUM BICARBONATE 650 MG TABLET PO SCH ×3 (09:03→20:10)
[2022-03-21] MEDS: CHOLECALCIFEROL 1,000 UNIT TABLET PO SCH (09:03)
[2022-03-21] MEDS: ZINC GLUCONATE 50 MG TABLET PO SCH (09:03)
[2022-03-21] MEDS: CALCIUM (CARBONATE)/VITAMIN D 600 MG-400 UNIT TABLET PO SCH (09:03)
[2022-03-21] MEDS: OXcarbazepine 300 MG TABLET PO SCH (09:04)
[2022-03-21] MEDS: GABAPENTIN 300 MG CAPSULE PO SCH ×3 (09:04→20:10)
[2022-03-21] MEDS: carvediloL 6.25 MG TABLET PO SCH ×2 (09:04→17:03)
[2022-03-21] MEDS: FAMOTIDINE 20 MG TABLET PO SCH ×2 (09:04→20:10)
[2022-03-21] MEDS: CETIRIZINE 10 MG TABLET PO SCH (09:04)
[2022-03-21] MEDS: ATORVASTATIN 40 MG TABLET PO SCH (09:04)
[2022-03-21] MEDS: busPIRone 5 MG TABLET PO SCH ×2 (09:04→20:10)
[2022-03-21] MEDS: DOCUSATE SODIUM 100 MG CAPSULE PO SCH ×2 (09:04→20:10)
[2022-03-21] MEDS: FERRIC GLUCONATE COMPLEX 125 MG in SODIUM CHLORIDE 0.9% 100 ML IV SCH (09:06)
[2022-03-21] MEDS: SKIN HEALING OINT (AQUAPHOR) 50 GM TUBE TOP SCH (09:12)
[2022-03-21] MEDS: ZINC OXIDE 16% PASTE 57 GM TUBE TOP SCH ×2 (09:12→20:10)
[2022-03-21 10:26] LABS: Calcium 8.9 MG/DL (8.5-10.1); Osmolality,Calculated 289.7 MOS/KG (273-304); Potassium 3.8 MMOL/L (3.5-5.1)
[2022-03-21] MEDS: LACTATED RINGERS 1,000 ML IV SCH (13:23)
[2022-03-21] MEDS ORDERED: hydrALAZINE 20 MG/1 ML VIAL IV ONE (16:34)
[2022-03-21] MEDS: DONEPEZIL 10 MG TABLET PO SCH (20:10)
[2022-03-22] MEDS: CLINDAMYCIN INJ 900 MG/50 ML PREMIX IV SCH ×3 (04:00→23:00)
[2022-03-22] MEDS: LACTATED RINGERS 1,000 ML IV SCH ×2 (04:00→23:51)
[2022-03-22] MEDS: HEPARIN 5,000 UNIT/1 ML VIAL SUBCUT SCH ×2 (08:35→23:08)
[2022-03-22 08:59] LABS: Eosinophils % 0.2 % (0.00-10.9); Immature Granulocytes Absolute 0.22 #; Mean Platelet Volume 9.7 FL (9.6-12.0); Monocytes % 5.1 % (1.7-12.7); Red Cell Distribution Width 15.7 % (9.3-17.3)
[2022-03-22 09:04] LABS: Basophils % 0.2 % (0.0-0.8); Hematocrit 34.8 VOL% (35.7-47.0); Lymphocytes # 1.3 10*3/uL (1.4-4.0); Lymphocytes % 11.9 % (21.3-54.2); Mean Corpuscular HGB Conc 32.8 GM/DL (32-36); Mean Corpuscular Volume 84.5 FL (87-102); Monocytes # 0.6 10*3/uL (0.11-0.8); Neutrophils % 80.6 % (38.7-73.9); Platelet Count 359 T/CUMM (130-400)
[2022-03-22 09:07] LABS: Hemoglobin 11.4 GM/DL (12.0-16.0); Red Blood Count 4.12 MC/CUMM (3.8-5.5)
[2022-03-22 09:15] LABS: Calcium 8.7 MG/DL (8.5-10.1); Potassium 3.6 MMOL/L (3.5-5.1)
[2022-03-22] MEDS: SODIUM BICARBONATE 650 MG TABLET PO SCH ×3 (11:27→23:03)
[2022-03-22] MEDS: CALCIUM (CARBONATE)/VITAMIN D 600 MG-400 UNIT TABLET PO SCH (11:27)
[2022-03-22] MEDS: ZINC GLUCONATE 50 MG TABLET PO SCH (11:27)
[2022-03-22] MEDS: CHOLECALCIFEROL 1,000 UNIT TABLET PO SCH (11:27)
[2022-03-22] MEDS: hydrOXYzine HCL 25 MG TABLET PO SCH ×3 (11:27→23:08)
[2022-03-22] MEDS: DOCUSATE SODIUM 100 MG CAPSULE PO SCH ×2 (11:27→23:04)
[2022-03-22] MEDS: CETIRIZINE 10 MG TABLET PO SCH (11:27)
[2022-03-22] MEDS: ATORVASTATIN 40 MG TABLET PO SCH (11:28)
[2022-03-22] MEDS: MEMANTINE 10 MG TABLET PO SCH ×2 (11:28→23:03)
[2022-03-22] MEDS: OXcarbazepine 300 MG TABLET PO SCH (11:28)
[2022-03-22] MEDS: busPIRone 5 MG TABLET PO SCH ×2 (11:28→23:04)
[2022-03-22] MEDS: carvediloL 6.25 MG TABLET PO SCH ×2 (11:28→18:17)
[2022-03-22] MEDS: ASCORBIC ACID 500 MG TABLET PO SCH ×2 (11:28→23:03)
[2022-03-22] MEDS: SKIN HEALING OINT (AQUAPHOR) 50 GM TUBE TOP SCH (11:28)
[2022-03-22] MEDS: ZINC OXIDE 16% PASTE 57 GM TUBE TOP SCH ×2 (11:29→23:06)
[2022-03-22] MEDS: DEXAMETHASONE 4 MG/1 ML VIAL IV SCH (11:29)
[2022-03-22] MEDS: FAMOTIDINE 20 MG TABLET PO SCH ×2 (11:31→23:04)
[2022-03-22] MEDS: FERRIC GLUCONATE COMPLEX 125 MG in SODIUM CHLORIDE 0.9% 100 ML IV SCH (11:50)
[2022-03-22] MEDS: cefTRIAXone 2,000 MG in SODIUM CHLORIDE 0.9% 100 ML IV SCH (12:22)
[2022-03-22] MEDS: amLODIPine 5 MG TABLET PO SCH (12:22)
[2022-03-22] MEDS: GABAPENTIN 300 MG CAPSULE PO SCH ×3 (12:23→23:06)
[2022-03-22] MEDS: SILVER SULFADIAZINE 1% CREAM 25 GM TUBE TOP SCH (14:55)
[2022-03-22] MEDS ORDERED: MAGNESIUM SULF INJ 3 GM in SODIUM CHLORIDE 0.9% 100 ML IV ONE (20:02)
[2022-03-22] MEDS: ALBUTEROL/IPRATROPIUM 3 ML NEB RESP TX SCH ×2 (20:05→23:00)
[2022-03-22] MEDS: DONEPEZIL 10 MG TABLET PO SCH (23:03)
[2022-03-23] MEDS: ALBUTEROL/IPRATROPIUM 3 ML NEB RESP TX SCH ×6 (03:57→23:55)
[2022-03-23] MEDS: CLINDAMYCIN INJ 900 MG/50 ML PREMIX IV SCH ×3 (05:51→22:23)
[2022-03-23] MEDS ORDERED: ALPRAZolam 0.5 MG TABLET PO PRN (07:29)
[2022-03-23 08:38] LABS: Basophils % 0.1 % (0.0-0.8); Eosinophils % 0.2 % (0.00-10.9); Hematocrit 32.7 VOL% (35.7-47.0); Hemoglobin 10.4 GM/DL (12.0-16.0); Immature Granulocytes % 2.1 %; Immature Granulocytes Absolute 0.21 #; Lymphocytes # 1.7 10*3/uL (1.4-4.0); Lymphocytes % 16.3 % (21.3-54.2); Mean Corpuscular HGB Conc 31.8 GM/DL (32-36); Mean Corpuscular Volume 85.8 FL (87-102); Mean Platelet Volume 9.5 FL (9.6-12.0); Monocytes # 0.6 10*3/uL (0.11-0.8); Monocytes % 5.8 % (1.7-12.7); Neutrophils % 75.5 % (38.7-73.9); Platelet Count 335 T/CUMM (130-400); Red Blood Count 3.81 MC/CUMM (3.8-5.5); Red Cell Distribution Width 15.9 % (9.3-17.3); White Blood Count 10.2 T/CUMM (4-12)
[2022-03-23 08:54] LABS: Osmolality,Calculated 283.4 MOS/KG (273-304); Potassium 3.2 MMOL/L (3.5-5.1)
[2022-03-23] MEDS: SODIUM BICARBONATE 650 MG TABLET PO SCH ×3 (09:26→22:21)
[2022-03-23] MEDS: ZINC GLUCONATE 50 MG TABLET PO SCH (09:26)
[2022-03-23] MEDS: hydrOXYzine HCL 25 MG TABLET PO SCH ×3 (09:26→22:21)
[2022-03-23] MEDS: CALCIUM (CARBONATE)/VITAMIN D 600 MG-400 UNIT TABLET PO SCH (09:26)
[2022-03-23] MEDS: LACTATED RINGERS 1,000 ML IV SCH ×2 (09:26→22:20)
[2022-03-23] MEDS: OXcarbazepine 300 MG TABLET PO SCH (09:27)
[2022-03-23] MEDS: carvediloL 6.25 MG TABLET PO SCH ×2 (09:27→16:02)
[2022-03-23] MEDS: FAMOTIDINE 20 MG TABLET PO SCH ×2 (09:27→22:21)
[2022-03-23] MEDS: amLODIPine 5 MG TABLET PO SCH (09:27)
[2022-03-23] MEDS: GABAPENTIN 300 MG CAPSULE PO SCH ×3 (09:27→22:21)
[2022-03-23] MEDS: CHOLECALCIFEROL 1,000 UNIT TABLET PO SCH (09:27)
[2022-03-23] MEDS: ASCORBIC ACID 500 MG TABLET PO SCH ×2 (09:27→22:22)
[2022-03-23] MEDS: CETIRIZINE 10 MG TABLET PO SCH (09:27)
[2022-03-23] MEDS: busPIRone 5 MG TABLET PO SCH ×2 (09:27→21:27)
[2022-03-23] MEDS: ATORVASTATIN 40 MG TABLET PO SCH (09:28)
[2022-03-23] MEDS: MEMANTINE 10 MG TABLET PO SCH ×2 (09:28→22:22)
[2022-03-23] MEDS: ZINC OXIDE 16% PASTE 57 GM TUBE TOP SCH ×2 (09:28→22:23)
[2022-03-23] MEDS: SKIN HEALING OINT (AQUAPHOR) 50 GM TUBE TOP SCH (09:28)
[2022-03-23] MEDS: SILVER SULFADIAZINE 1% CREAM 25 GM TUBE TOP SCH (09:28)
[2022-03-23] MEDS: DEXAMETHASONE 4 MG/1 ML VIAL IV SCH (09:29)
[2022-03-23] MEDS: FERRIC GLUCONATE COMPLEX 125 MG in SODIUM CHLORIDE 0.9% 100 ML IV SCH (09:37)
[2022-03-23] MEDS: cefTRIAXone 2,000 MG in SODIUM CHLORIDE 0.9% 100 ML IV SCH (09:38)
[2022-03-23] MEDS: DOCUSATE SODIUM 100 MG CAPSULE PO SCH ×2 (09:39→22:22)
[2022-03-23] MEDS: HEPARIN 5,000 UNIT/1 ML VIAL SUBCUT SCH ×2 (09:40→22:25)
[2022-03-23] MEDS ORDERED: MAGNESIUM SULF RIDER 4 GM/100 ML PREMIX IV ONE (11:00)
[2022-03-23] MEDS ORDERED: POTASSIUM CHLORIDE 20 MEQ TABLET PO ONE (12:01)
[2022-03-23] MEDS: INSULIN REGULAR 100 UNIT/ML SUBCUT SCH ×3 (12:12→23:39)
[2022-03-23] MEDS: POTASSIUM CHLORIDE RIDER 10 MEQ/100 ML PREMIX IV SCH ×2 (14:05→15:11)
[2022-03-23] MEDS: DONEPEZIL 10 MG TABLET PO SCH (22:22)
[2022-03-23] MEDS: CYPROHEPTADINE 4 MG TABLET PO SCH (22:23)
[2022-03-24] MEDS: ALBUTEROL/IPRATROPIUM 3 ML NEB RESP TX SCH ×6 (02:50→23:01)
[2022-03-24] MEDS: CLINDAMYCIN INJ 900 MG/50 ML PREMIX IV SCH ×3 (04:39→21:04)
[2022-03-24 05:45] LABS: Basophils % 0.3 % (0.0-0.8); Eosinophils % 0.3 % (0.00-10.9); Immature Granulocytes % 1.5 %; Immature Granulocytes Absolute 0.17 #; Lymphocytes # 1.7 10*3/uL (1.4-4.0); Lymphocytes % 14.1 % (21.3-54.2); Mean Corpuscular HGB Conc 31.3 GM/DL (32-36); Mean Corpuscular Volume 87.9 FL (87-102); Mean Platelet Volume 9.8 FL (9.6-12.0); Monocytes # 0.6 10*3/uL (0.11-0.8); Monocytes % 5.1 % (1.7-12.7); Neutrophils % 78.7 % (38.7-73.9); Platelet Count 374 T/CUMM (130-400); Red Blood Count 3.64 MC/CUMM (3.8-5.5); Red Cell Distribution Width 15.8 % (9.3-17.3); White Blood Count 11.7 T/CUMM (4-12)
[2022-03-24 06:00] LABS: Calcium 8.7 MG/DL (8.5-10.1); Osmolality,Calculated 282.3 MOS/KG (273-304); Potassium 3.6 MMOL/L (3.5-5.1)
[2022-03-24] MEDS: ZINC GLUCONATE 50 MG TABLET PO SCH (10:44)
[2022-03-24] MEDS: hydrOXYzine HCL 25 MG TABLET PO SCH ×3 (10:44→21:04)
[2022-03-24] MEDS: HEPARIN 5,000 UNIT/1 ML VIAL SUBCUT SCH ×2 (10:44→21:05)
[2022-03-24] MEDS: CALCIUM (CARBONATE)/VITAMIN D 600 MG-400 UNIT TABLET PO SCH (10:44)
[2022-03-24] MEDS: CETIRIZINE 10 MG TABLET PO SCH (10:45)
[2022-03-24] MEDS: GABAPENTIN 300 MG CAPSULE PO SCH ×3 (10:45→21:04)
[2022-03-24] MEDS: ASCORBIC ACID 500 MG TABLET PO SCH ×2 (10:45→21:05)
[2022-03-24] MEDS: CYPROHEPTADINE 4 MG TABLET PO SCH ×3 (10:45→21:04)
[2022-03-24] MEDS: OXcarbazepine 300 MG TABLET PO SCH (10:45)
[2022-03-24] MEDS: CHOLECALCIFEROL 1,000 UNIT TABLET PO SCH (10:45)
[2022-03-24] MEDS: ATORVASTATIN 40 MG TABLET PO SCH (10:45)
[2022-03-24] MEDS: busPIRone 5 MG TABLET PO SCH ×2 (10:45→21:05)
[2022-03-24] MEDS: amLODIPine 5 MG TABLET PO SCH (10:45)
[2022-03-24] MEDS: MEMANTINE 10 MG TABLET PO SCH ×2 (10:46→21:04)
[2022-03-24] MEDS: SODIUM BICARBONATE 650 MG TABLET PO SCH ×3 (10:46→21:04)
[2022-03-24] MEDS: FAMOTIDINE 20 MG TABLET PO SCH ×2 (10:46→21:21)
[2022-03-24] MEDS: carvediloL 6.25 MG TABLET PO SCH ×2 (10:46→16:10)
[2022-03-24] MEDS: DEXAMETHASONE 4 MG/1 ML VIAL IV SCH (10:46)
[2022-03-24] MEDS: DOCUSATE SODIUM 100 MG CAPSULE PO SCH ×2 (10:46→21:04)
[2022-03-24] MEDS: SKIN HEALING OINT (AQUAPHOR) 50 GM TUBE TOP SCH (10:47)
[2022-03-24] MEDS: cefTRIAXone 2,000 MG in SODIUM CHLORIDE 0.9% 100 ML IV SCH (10:47)
[2022-03-24] MEDS: INSULIN REGULAR 100 UNIT/ML SUBCUT SCH ×4 (10:47→21:06)
[2022-03-24] MEDS: ZINC OXIDE 16% PASTE 57 GM TUBE TOP SCH ×2 (10:48→21:06)
[2022-03-24] MEDS: SILVER SULFADIAZINE 1% CREAM 25 GM TUBE TOP SCH (10:48)
[2022-03-24] MEDS: LACTATED RINGERS 1,000 ML IV SCH ×2 (11:40→13:46)
[2022-03-24] MEDS ORDERED: FUROSEMIDE 40 MG/4 ML VIAL IV ONE (13:37)
[2022-03-24] MEDS: FERRIC GLUCONATE COMPLEX 125 MG in SODIUM CHLORIDE 0.9% 100 ML IV SCH (13:44)
[2022-03-24] MEDS: DONEPEZIL 10 MG TABLET PO SCH (21:05)
[2022-03-25] MEDS: LACTATED RINGERS 1,000 ML IV SCH ×2 (01:58→14:08)
[2022-03-25] MEDS: ALBUTEROL/IPRATROPIUM 3 ML NEB RESP TX SCH ×4 (03:17→15:50)
[2022-03-25 04:57] LABS: Basophils % 0.2 % (0.0-0.8); Eosinophils % 0.2 % (0.00-10.9); Hematocrit 34.1 VOL% (35.7-47.0); Hemoglobin 10.6 GM/DL (12.0-16.0); Immature Granulocytes % 1.3 %; Immature Granulocytes Absolute 0.17 #; Lymphocytes # 1.4 10*3/uL (1.4-4.0); Lymphocytes % 10.9 % (21.3-54.2); Mean Corpuscular HGB Conc 31.1 GM/DL (32-36); Mean Corpuscular Volume 87.7 FL (87-102); Monocytes # 0.6 10*3/uL (0.11-0.8); Monocytes % 4.9 % (1.7-12.7); Neutrophils % 82.5 % (38.7-73.9); Platelet Count 366 T/CUMM (130-400); Red Blood Count 3.89 MC/CUMM (3.8-5.5); Red Cell Distribution Width 15.6 % (9.3-17.3); White Blood Count 12.7 T/CUMM (4-12)
[2022-03-25 05:13] LABS: Calcium 8.9 MG/DL (8.5-10.1); Osmolality,Calculated 279.3 MOS/KG (273-304)
[2022-03-25] MEDS: CLINDAMYCIN INJ 900 MG/50 ML PREMIX IV SCH (05:20)
[2022-03-25] MEDS: INSULIN REGULAR 100 UNIT/ML SUBCUT SCH ×3 (08:55→16:14)
[2022-03-25] MEDS: HEPARIN 5,000 UNIT/1 ML VIAL SUBCUT SCH (10:35)
[2022-03-25] MEDS: cefTRIAXone 2,000 MG in SODIUM CHLORIDE 0.9% 100 ML IV SCH (10:35)
[2022-03-25] MEDS: CETIRIZINE 10 MG TABLET PO SCH (10:38)
[2022-03-25] MEDS: CHOLECALCIFEROL 1,000 UNIT TABLET PO SCH (10:38)
[2022-03-25] MEDS: SODIUM BICARBONATE 650 MG TABLET PO SCH ×2 (10:38→16:30)
[2022-03-25] MEDS: CYPROHEPTADINE 4 MG TABLET PO SCH ×2 (10:38→16:31)
[2022-03-25] MEDS: ASCORBIC ACID 500 MG TABLET PO SCH (10:38)
[2022-03-25] MEDS: amLODIPine 5 MG TABLET PO SCH (10:38)
[2022-03-25] MEDS: busPIRone 5 MG TABLET PO SCH (10:38)
[2022-03-25] MEDS: ATORVASTATIN 40 MG TABLET PO SCH (10:39)
[2022-03-25] MEDS: carvediloL 6.25 MG TABLET PO SCH ×2 (10:39→16:31)
[2022-03-25] MEDS: ZINC GLUCONATE 50 MG TABLET PO SCH (10:39)
[2022-03-25] MEDS: hydrOXYzine HCL 25 MG TABLET PO SCH ×2 (10:39→16:31)
[2022-03-25] MEDS: CALCIUM (CARBONATE)/VITAMIN D 600 MG-400 UNIT TABLET PO SCH (10:39)
[2022-03-25] MEDS: DOCUSATE SODIUM 100 MG CAPSULE PO SCH (10:39)
[2022-03-25] MEDS: OXcarbazepine 300 MG TABLET PO SCH (10:39)
[2022-03-25] MEDS: GABAPENTIN 300 MG CAPSULE PO SCH ×2 (10:39→16:31)
[2022-03-25] MEDS: MEMANTINE 10 MG TABLET PO SCH (10:40)
[2022-03-25] MEDS: ZINC OXIDE 16% PASTE 57 GM TUBE TOP SCH (10:40)
[2022-03-25] MEDS: FAMOTIDINE 20 MG TABLET PO SCH (10:40)
[2022-03-25] MEDS: SKIN HEALING OINT (AQUAPHOR) 50 GM TUBE TOP SCH (10:40)
[2022-03-25] MEDS: POTASSIUM CHLORIDE RIDER 10 MEQ/100 ML PREMIX IV SCH ×3 (12:07→15:08)
[2022-03-25] MEDS ORDERED: CLINDAMYCIN 300 MG CAPSULE PO SCH (15:00)
[2022-03-25] MEDS: FERRIC GLUCONATE COMPLEX 125 MG in SODIUM CHLORIDE 0.9% 100 ML IV SCH (15:08)
[2022-03-25 16:29] VITALS: BP 150/97
== END 2022-03-25 17:32 | disposition hospice, home (50) | DRG 871 ==
LOC: EDUNIT# → EDBD → N.ED 03:35 → N.EDINP 04:57 → SUATTDRO 04:57 → N.5E 10:44
PROVIDERS: ADMIT Internal Medicine; ATTEND Internal Medicine